=== PATIENT | female | born 1980 | race Caucasian/White ===

== ENCOUNTER 2019-06-01 13:39 | Emergency (ER) | payer MEDICARE, MEDICAID ==
[~2019-06-01] VITALS: Ht 177.8 cm; Wt 121.4 kg
[~2019-06-01 13:39] MED LIST: ALBU6.7H9 INH; BECL7.3A INH; DIVA-81 PO; METO10TA3 PO; METO5TAB98 PO; METR250T PO; OMEP40CA13 PO; ONDA4TAB9 PO; POLY17PO10 PO; PROM25SU46 RC; RIZA10TA27 PO; ZOF4T PO
[2019-06-01 13:50] VITALS: BP 184/109
[2019-06-01] MEDS ORDERED: proCHLORperazine 10 MG/2 ml inj IM ONE (16:35)
[2019-06-01] MEDS ORDERED: diphenhydrAMINE 25mg capsule PO ONE (16:35)
[2019-06-01] MEDS ORDERED: ketorolac tromethamine 15mg/ml inj. IM ONE (16:35)
== END 2019-06-01 17:30 | disposition home or self-care (01) ==
LOC: ER 13:40
DX: G43.909 Migraine, unspecified, not intractable, without status migrainosus (principal); E66.9 Obesity, unspecified; I10 Essential (primary) hypertension; G89.29 Other chronic pain; Z56.0 Unemployment, unspecified; Z98.890 Other specified postprocedural states; Z88.0 Allergy status to penicillin; Z88.5 Allergy status to narcotic agent; Z79.899 Other long term (current) drug therapy
CPT/HCPCS: 96372; 99283; J0780; J1885; Q0163

== ENCOUNTER 2019-10-03 16:59 | Emergency (ER) | payer MEDICARE, MEDICAID ==
[~2019-10-03] VITALS: Ht 177.8 cm; Wt 122.4 kg
[2019-10-03] MEDS ORDERED: proCHLORperazine 10mg tablet PO ONE (18:20)
[2019-10-03] MEDS ORDERED: ketorolac tromethamine 15mg/ml inj. IM ONE (18:20)
[2019-10-03] MEDS ORDERED: diphenhydrAMINE 25mg capsule PO ONE (18:20)
[2019-10-03] MEDS ORDERED: FLUT16SP2 BOTHNARES (18:30)
[2019-10-03] MEDS ORDERED: DOXY100C2 PO (18:30)
[2019-10-03] MEDS ORDERED: PROC-8 PO (18:30)
[2019-10-03] MEDS ORDERED: DIPH25CA83 PO (18:30)
[2019-10-03 19:07] VITALS: BP 186/84
== END 2019-10-03 19:11 | disposition home or self-care (01) ==
LOC: ER 17:00
DX: J32.9 Chronic sinusitis, unspecified (principal); G43.909 Migraine, unspecified, not intractable, without status migrainosus; I10 Essential (primary) hypertension; G89.29 Other chronic pain; R11.2 Nausea with vomiting, unspecified; F17.200 Nicotine dependence, unspecified, uncomplicated; Z98.890 Other specified postprocedural states; Z56.0 Unemployment, unspecified; Z88.0 Allergy status to penicillin; Z88.5 Allergy status to narcotic agent; Z79.899 Other long term (current) drug therapy
CPT/HCPCS: 96372; 99284; J1885; Q0163; Q0164

== ENCOUNTER 2020-06-10 14:43 | Emergency (ER) | payer MEDICARE, MEDICAID ==
[~2020-06-10] VITALS: Ht 177.8 cm; Wt 118.2 kg
[~2020-06-10 14:43] MED LIST changes: +DIPH25CA83 PO; +FLUT16SP2 BOTHNARES; +PROC-8 PO; -PROM25SU46 RC; +PROM25SU9 RC
[2020-06-10 17:24] VITALS: BP 134/77
== END 2020-06-10 17:20 | disposition home or self-care (01) ==
LOC: ER 14:44
DX: S16.1XXA Strain of muscle, fascia and tendon at neck level, initial encounter (principal); M25.512 Pain in left shoulder; Z98.890 Other specified postprocedural states; Z56.0 Unemployment, unspecified; V13.4XXA Pedal cycle driver injured in collision with car, pick-up truck or van in traffic accident, initial encounter; Y93.89 Activity, other specified; Y92.89 Other specified places as the place of occurrence of the external cause; Y99.8 Other external cause status
CPT/HCPCS: 99281

== ENCOUNTER 2020-08-22 02:02 | Emergency (ER) | payer MEDICARE, MEDICAID ==
[~2020-08-22] VITALS: Ht 177.8 cm; Wt 118.2 kg
[2020-08-22] MEDS ORDERED: CLIN-97 PO (02:31)
[2020-08-22] MEDS ORDERED: ketorolac trometh inj. 60 MG/2 ML VIAL IM ONE (02:45)
[2020-08-22 02:53] VITALS: BP 130/96
== END 2020-08-22 02:54 | disposition home or self-care (01) ==
LOC: ER 02:03
DX: K08.89 Other specified disorders of teeth and supporting structures (principal); K02.9 Dental caries, unspecified; G43.909 Migraine, unspecified, not intractable, without status migrainosus; G89.29 Other chronic pain; I10 Essential (primary) hypertension; F17.200 Nicotine dependence, unspecified, uncomplicated; Z90.710 Acquired absence of both cervix and uterus; Z56.0 Unemployment, unspecified; Z88.0 Allergy status to penicillin; Z88.8 Allergy status to other drugs, medicaments and biological substances; Z79.2 Long term (current) use of antibiotics; Z79.899 Other long term (current) drug therapy
CPT/HCPCS: 96372; 99283; J1885

== ENCOUNTER 2023-05-18 22:09 | Emergency (ER) | payer MEDICARE, MEDICAID ==
[~2023-05-18] VITALS: Ht 177.8 cm; Wt 115.9 kg
[~2023-05-18 22:09] MED LIST changes: +ALBU6.7H14 INH; -ALBU6.7H9 INH; +CLIN-97 PO; -OMEP40CA13 PO; +OMEP40CA21 PO; +RIZA-5 PO; -RIZA10TA27 PO
[2023-05-18 22:36] VITALS: TEMP 97.8
[2023-05-18 23:20] LABS: URINE HCG NEGATIVE (NEG)
[2023-05-18 23:23] LABS: BILIRUBIN,URINE NEGATIVE (Neg); COLOR,URINE YELLOW (Yellow); GLUCOSE, URINE NEGATIVE (Neg); KETONES,URINE NEGATIVE (Neg); LEUKOCYTE ESTERASE ,URINE NEGATIVE (Neg); NITRITES, URINE NEGATIVE (Neg); OCCULT BLOOD,URINE MODERATE (Neg); PROTEIN,URINE NEGATIVE (Neg)
[2023-05-18] MEDS ORDERED: ALPR0.5T9 PO (23:32)
[2023-05-18] MEDS ORDERED: BUPR8TAB4 SL (23:32)
[2023-05-18] MEDS ORDERED: AMLO5TAB16 PO (23:32)
[2023-05-18] MEDS ORDERED: LISD50CA3 PO (23:32)
[2023-05-18 23:33] LABS: UA COLLECTION TYPE CLN CATCH MIDSTREAM
[2023-05-18] MEDS ORDERED: SULF1TAB49 PO (23:33)
[2023-05-18 23:34] VITALS: BP 167/101; PULSE 93; RESP 17; O2SAT 99
[2023-05-18 23:34] LABS: CLARITY,URINE SLIGHTLY CLOUDY (Clear)
[2023-05-18 23:36] LABS: BACTERIA,URINE FEW /HPF (Neg); RBC,URINE 20-50 /HPF (0-2); SQUAMOUS EPITHELIAL CELL,UR FEW /LPF (FEW)
[2023-05-19 00:17] LABS: BASOPHILS % (AUTO) 0.5 % (0-1); EOSINOPHILS # (AUTO) 0.1 X10'3 (0-0.9); HEMOGLOBIN 14.1 g/dl (12.0-16.0); MEAN CORPUSCULAR HEMOGLOBIN 28.7 PG (27.0-31.0); MONOCYTES # (AUTO) 0.6 X10'3 (0-0.9); NEUTROPHILS # (AUTO) 7.4 X10'3 (1.8-7.7)
[2023-05-19 00:19] LABS: BASOPHILS # (AUTO) 0.1 X10'3 (0-0.2); EOSINOPHILS % (AUTO) 0.6 % (0-6); HEMATOCRIT 42.1 % (35.0-45.0); LYMPHOCYTES # (AUTO) 1.8 X10'3 (1.1-4.8); LYMPHOCYTES % (AUTO) 18.4 % (21-51); MEAN CORPUSCULAR HGB CONC 33.4 g/dL (33.0-36.5); MEAN CORPUSCULAR VOLUME 85.9 FL (78-98); MEAN PLATELET VOLUME 9.1 FL (7.4-10.4); MONOCYTES % (AUTO) 5.9 % (2-12); NEUTROPHILS % (AUTO) 74.6 % (42-75); PLATELET COUNT 272 X10'3 (140-440); RED CELL DISTRIBUTION WIDTH 13.2 % (11.5-14.5); WHITE BLOOD COUNT 9.9 X10'3 (4.5-11.0)
[2023-05-19 00:25] LABS: ALANINE AMINOTRANSFERASE 31 U/L (12-78); ALBUMIN 3.9 G/DL (3.4-5.0); ALBUMIN/GLOBULIN RATIO 1.1 (1.1-1.5); ALKALINE PHOSPHATASE 156 IU/L (46-116); ANION GAP 6 (8-16); ASPARTATE AMINO TRANSFERASE 19 U/L (10-37); BILIRUBIN,TOTAL 0.3 MG/DL (0.1-1.0); BLOOD UREA NITROGEN 9 MG/DL (7-18); CALCIUM 9.1 MG/DL (8.5-10.1); CHLORIDE 101 MMOL/L (99-107); GLUCOSE 90 MG/DL (70-104); LIPASE < 50 U/L (73-393); POTASSIUM 3.7 MMOL/L (3.5-5.1); SODIUM 140 MMOL/L (135-145); TOTAL CARBON DIOXIDE 32.9 MMOL/L (24-32); TOTAL PROTEIN 7.3 G/DL (6.4-8.2); eCRCL 85 ML/MIN; eGFR 68 ML/MIN
[2023-05-19] MEDS ORDERED: tamsulosin 0.4mg capsule PO ONE (01:45)
[2023-05-19] MEDS ORDERED: FLO0.4C PO (01:47)
== END 2023-05-19 01:52 | disposition home or self-care (01) ==
LOC: ER 22:09
DX: N20.0 Calculus of kidney (principal); G89.29 Other chronic pain; M54.9 Dorsalgia, unspecified; I10 Essential (primary) hypertension; G43.909 Migraine, unspecified, not intractable, without status migrainosus; Z59.00 Homelessness unspecified; Z88.5 Allergy status to narcotic agent; Z79.899 Other long term (current) drug therapy
CPT/HCPCS: 36415; 74176; 80053; 81001; 81025; 83690; 85025; 87088; 99284